=== PATIENT | male | born 1950 | race African-American/Black ===

== ENCOUNTER 2020-03-05 17:39 | Inpatient (IN) ==
[2020-03-05 18:02] LABS: Basophils # 0.1 10*3/uL (0.0-0.2); Basophils % 0.7 % (0.0-0.8); Eosinophils # 0.1 10*3/uL (0.0-0.87); Eosinophils % 1.2 % (0.00-10.9); Hematocrit 35.5 VOL% (42.0-52.0); Hemoglobin 11.5 GM/DL (14.0-18.0); Immature Granulocytes % 0.3 %; Immature Granulocytes Absolute 0.03 #; Lymphocytes # 1.5 10*3/uL (1.4-4.0); Lymphocytes % 16.9 % (21.2-54.2); Mean Corpuscular HGB Conc 32.4 GM/DL (32-36); Mean Platelet Volume 11.3 FL (9.6-12.0); Monocytes % 10.4 % (1.7-12.7); Neutrophils % 70.5 % (38.7-73.9); Platelet Count 174 T/CUMM (130-400); Red Blood Count 3.66 MC/CUMM (3.8-5.5); Red Cell Distribution Width 11.8 % (9.3-17.3); White Blood Count 9.1 T/CUMM (4-12)
[2020-03-05 18:51] LABS: Albumin 3.9 G/DL (3.4-5.0); Calcium 9.6 MG/DL (8.5-10.1); Osmolality,Calculated 284.4 MOS/KG (273-304); Total Protein 7.8 G/DL (6.4-8.3)
[2020-03-05] MEDS ORDERED: ASPIRIN CHEW 81 MG TABLET PO STA (20:35)
[2020-03-05] MEDS ORDERED: ONDANSETRON 4 MG/2 ML VIAL IV PRN (21:44)
[2020-03-05] MEDS ORDERED: MORPHINE 4 MG/1 ML VIAL IV PRN (21:44)
[2020-03-05] MEDS ORDERED: DEXTROSE 50% 25 GM/50 ML VIAL IV PRN (21:44)
[2020-03-05] MEDS ORDERED: GLUCAGON 1 MG VIAL IM PRN (21:44)
[2020-03-05] MEDS ORDERED: ACETAMINOPHEN 325 MG TABLET PO PRN (21:44)
[2020-03-05] MEDS ORDERED: DEXTROSE 50% 25 GM/50 ML SYRINGE IV PRN (21:53)
[2020-03-05] MEDS ORDERED: ENOXAPARIN 80 MG/0.8 ML SYRINGE SUBCUT SCH (22:00)
[2020-03-05 23:50] LABS: Bilirubin,Urine Negative (Negative); Blood, Urine Small mg/dL (Negative); Glucose,Urine (UA) >=500 mg/dL (Negative); Ketones,Urine Negative (Negative); Mucus,Urine Occasional /LPF (Occasional); Nitrite,Urine Negative (Negative); Protein,Urine 30 MG/DL; RBC,Urine 21 /HPF (0-4); Urine Appearance CLEAR (Clear); Urine Color Yellow (Yellow); Urine Specific Gravity 1.024 (1.001-1.035); WBC,Urine 1 /HPF (0-6)
[2020-03-06 05:54] LABS: Basophils # 0.1 10*3/uL (0.0-0.2); Basophils % 0.7 % (0.0-0.8); Eosinophils # 0.1 10*3/uL (0.0-0.87); Eosinophils % 1.9 % (0.00-10.9); Hematocrit 33.9 VOL% (42.0-52.0); Hemoglobin 11.2 GM/DL (14.0-18.0); Immature Granulocytes % 0.3 %; Immature Granulocytes Absolute 0.02 #; Lymphocytes % 26.8 % (21.2-54.2); Mean Corpuscular Volume 96.3 FL (87-102); Monocytes % 10.7 % (1.7-12.7); Neutrophils % 59.6 % (38.7-73.9); Platelet Count 159 T/CUMM (130-400); Red Blood Count 3.52 MC/CUMM (3.8-5.5); Red Cell Distribution Width 11.8 % (9.3-17.3); White Blood Count 7.5 T/CUMM (4-12)
[2020-03-06 06:02] LABS: Albumin 3.4 G/DL (3.4-5.0); Bilirubin,Total 1.2 MG/DL (0.2-1.0); Calcium 9.1 MG/DL (8.5-10.1); Osmolality,Calculated 280.3 MOS/KG (273-304); Total Protein 7.3 G/DL (6.4-8.3)
[2020-03-06 06:03] LABS: Risk Ratio 2.05
[2020-03-06] MEDS ORDERED: DIAZEPAM 5 MG TABLET PO ONE (07:46)
[2020-03-06] MEDS ORDERED: diphenhydrAMINE CAP 25 MG CAPSULE PO ONE (07:46)
[2020-03-06] MEDS ORDERED: POTASSIUM CHLORIDE 20 MEQ TABLET PO ONE (07:50)
[2020-03-06] MEDS ORDERED: NITROGLYCERIN SL 0.4 MG TABLET SL PRN (07:52)
[2020-03-06] MEDS: INSULIN REGULAR 100 UNIT/ML SUBCUT SCH ×4 (08:59→20:27)
[2020-03-06] MEDS: LOSARTAN 25 MG TABLET PO SCH (09:14)
[2020-03-06] MEDS: ATORVASTATIN 80 MG TABLET PO SCH (09:14)
[2020-03-06] MEDS: CLOPIDOGREL 75 MG TABLET PO SCH (09:15)
[2020-03-06] MEDS: SODIUM CHLORIDE 0.45% 1,000 ML IV SCH ×3 (09:15→18:22)
[2020-03-06] MEDS: carvediloL 3.125 MG TABLET PO SCH ×2 (09:15→20:28)
[2020-03-06] MEDS: PANTOPRAZOLE 40 MG TABLET PO SCH (09:15)
[2020-03-06] MEDS: ASPIRIN EC 325 MG TABLET PO SCH (09:15)
[2020-03-06] MEDS: OFLOXACIN 0.3% OPH SOLN 5 ML BOTTLE RIGHT EYE SCH ×3 (09:20→20:29)
[2020-03-06] MEDS ORDERED: HEPARIN/NACL 0.9% 2 UNITS/ML 1,000 ML IV ONE (11:07)
[2020-03-06] MEDS ORDERED: LIDOCAINE 1% 20 ML VIAL ONE (11:08)
[2020-03-06] MEDS ORDERED: MIDAZOLAM 2 MG/2 ML VIAL ONE (11:08)
[2020-03-06] MEDS ORDERED: fentaNYL 100 MCG/2 ML VIAL ONE (11:09)
[2020-03-06] MEDS ORDERED: HEPARIN/NACL 0.9% 2 UNITS/ML 500 ML IV ONE (11:14)
[2020-03-06] MEDS ORDERED: SODIUM CHLORIDE 0.9% 1,000 ML IV SCH (12:30)
[2020-03-06] MEDS ORDERED: ROSUVASTATIN 20 MG TABLET PO SCH (21:00)
[2020-03-07] MEDS: SODIUM CHLORIDE 0.45% 1,000 ML IV SCH ×2 (02:03→10:14)
[2020-03-07 04:23] LABS: Basophils % 0.5 % (0.0-0.8); Eosinophils # 0.2 10*3/uL (0.0-0.87); Eosinophils % 2.4 % (0.00-10.9); Hematocrit 34.3 VOL% (42.0-52.0); Immature Granulocytes % 0.2 %; Immature Granulocytes Absolute 0.02 #; Lymphocytes # 1.7 10*3/uL (1.4-4.0); Lymphocytes % 20.8 % (21.2-54.2); Mean Corpuscular HGB Conc 32.1 GM/DL (32-36); Mean Corpuscular Volume 97.2 FL (87-102); Mean Platelet Volume 11.1 FL (9.6-12.0); Monocytes % 10.3 % (1.7-12.7); Neutrophils % 65.8 % (38.7-73.9); Platelet Count 157 T/CUMM (130-400); Red Blood Count 3.53 MC/CUMM (3.8-5.5); Red Cell Distribution Width 11.7 % (9.3-17.3)
[2020-03-07 04:38] LABS: Calcium 8.1 MG/DL (8.5-10.1); Osmolality,Calculated 278.5 MOS/KG (273-304)
[2020-03-07 04:42] LABS: CKMB % 0.8 %
[2020-03-07 04:52] LABS: Troponin I 1.17 NG/ML (0.00-0.045)
[2020-03-07] MEDS: FLUTICASONE/SALMETEROL 100-50 DISKUS 14 DOSE INH SCH ×2 (05:25→09:35)
[2020-03-07] MEDS ORDERED: carvediloL 3.125 MG TABLET PO SCH (08:00)
[2020-03-07] MEDS: INSULIN REGULAR 100 UNIT/ML SUBCUT SCH ×2 (08:56→12:04)
[2020-03-07] MEDS ORDERED: ISOSORBIDE MONONITRATE 30 MG TABLET PO SCH (09:00)
[2020-03-07] MEDS: ATORVASTATIN 80 MG TABLET PO SCH (09:35)
[2020-03-07] MEDS: CLOPIDOGREL 75 MG TABLET PO SCH (09:35)
[2020-03-07] MEDS: OFLOXACIN 0.3% OPH SOLN 5 ML BOTTLE RIGHT EYE SCH ×2 (09:35→12:46)
[2020-03-07] MEDS: PANTOPRAZOLE 40 MG TABLET PO SCH (09:35)
[2020-03-07] MEDS: ASPIRIN EC 325 MG TABLET PO SCH (09:35)
[2020-03-07] MEDS: LOSARTAN 25 MG TABLET PO SCH (09:35)
[2020-03-07] MEDS ORDERED: carvediloL 6.25 MG TABLET PO SCH (09:39)
[2020-03-07] MEDS ORDERED: MAGNESIUM SULF RIDER 2 GM in PREMIX 1 EACH IV ONE (10:53)
[2020-03-07 12:23] VITALS: BP 126/74
== END 2020-03-07 14:30 | disposition home or self-care (01) | DRG 281 ==
LOC: N.ED 17:39 → N.EDINP 17:39 → N.TELEN 03-06 00:08
PROVIDERS: ADMIT Family Medicine; ATTEND Family Medicine
PROC: CLCCHCL (ICD-10-PCS; 2020-03-06 10:15)

== ENCOUNTER 2022-02-24 10:05 | Inpatient (IN) ==
[2022-02-24] MEDS ORDERED: PANTOPRAZOLE 40 MG VIAL IV STA (10:38)
[2022-02-24] MEDS ORDERED: ONDANSETRON 4 MG/2 ML VIAL IV STA ×2 (10:38→12:42)
[2022-02-24] MEDS ORDERED: SODIUM CHLORIDE 0.9% 1,000 ML IV STA (10:38)
[2022-02-24 11:17] LABS: Basophils % 0.3 % (0.0-0.8); Eosinophils % 0.2 % (0.00-10.9); Hematocrit 38.8 VOL% (42.0-52.0); Hemoglobin 12.8 GM/DL (14.0-18.0); Immature Granulocytes % 0.3 %; Immature Granulocytes Absolute 0.04 #; Lymphocytes # 0.8 10*3/uL (1.4-4.0); Lymphocytes % 6.6 % (21.2-54.2); Mean Corpuscular Volume 95.8 FL (87-102); Mean Platelet Volume 9.8 FL (9.6-12.0); Monocytes # 0.7 10*3/uL (0.11-0.8); Monocytes % 5.6 % (1.7-12.7); Platelet Count 185 T/CUMM (130-400); Red Blood Count 4.05 MC/CUMM (3.8-5.5); Red Cell Distribution Width 11.7 % (9.3-17.3); White Blood Count 12.1 T/CUMM (4-12)
[2022-02-24 11:26] LABS: Bilirubin,Urine Negative (Negative); Blood, Urine Large mg/dL (Negative); Glucose,Urine (UA) >1000 mg/dL (Negative); Ketones,Urine 15 mg/dL (Negative); Mucus,Urine Occasional /LPF (Occasional); Nitrite,Urine Negative (Negative); Protein,Urine Trace mg/dL (Negative); RBC,Urine 91 /HPF (0-4); Urine Appearance Clear (Clear); Urine Color Yellow (Yellow); Urine Specific Gravity 1.015 (1.001-1.035); Urine Urobilinogen 0.2 eU/dL (<2.0)
[2022-02-24 11:36] LABS: Albumin 3.9 G/DL (3.4-5.0); Bilirubin,Total 0.5 MG/DL (0.20-1.00); Calcium 9.5 MG/DL (8.5-10.1); Osmolality,Calculated 296.4 MOS/KG (273-304); Potassium 4.1 MMOL/L (3.5-5.1); Total Protein 8.3 G/DL (6.4-8.2)
[2022-02-24] MEDS ORDERED: HYDROmorphone 1 MG/1 ML SYRINGE IV STA (12:39)
[2022-02-24] MEDS ORDERED: propofoL 200 MG/20 ML VIAL IV ONE ×2 (13:40→14:50)
[2022-02-24] MEDS ORDERED: fentaNYL 100 MCG/2 ML VIAL ONE (13:40)
[2022-02-24] MEDS ORDERED: LIDOCAINE 2% 5 ML VIAL ONE (13:40)
[2022-02-24] MEDS ORDERED: cefTRIAXone 1,000 MG in SODIUM CHLORIDE 0.9% 100 ML IV ONE (13:41)
[2022-02-24] MEDS ORDERED: ETOMIDATE 40 MG/20 ML VIAL IV ONE (13:43)
[2022-02-24] MEDS ORDERED: PHENYLEPHRINE 1 MG/10 ML SYRINGE IV ONE (14:50)
[2022-02-24] MEDS ORDERED: SUCCINYLCHOLINE 200 MG/10 ML VIAL ONE (14:50)
[2022-02-24] MEDS ORDERED: SEVOFLURANE 1 UNIT/15 MINUTE INH ONE (14:50)
[2022-02-24] MEDS ORDERED: DEXTROSE 10% 250 ML BAG IV PRN (15:07)
[2022-02-24] MEDS ORDERED: GLUCAGON 1 MG VIAL IM PRN (15:07)
[2022-02-24] MEDS ORDERED: MORPHINE 2 MG/1 ML SYRINGE IV PRN (15:07)
[2022-02-24] MEDS ORDERED: hydrALAZINE 20 MG/1 ML VIAL IV PRN (15:07)
[2022-02-24] MEDS ORDERED: ONDANSETRON 4 MG/2 ML VIAL IV PRN ×2 (15:07→15:15)
[2022-02-24] MEDS ORDERED: diphenhydrAMINE 50 MG/1 ML VIAL IV PRN (15:15)
[2022-02-24] MEDS ORDERED: MEPERIDINE 25 MG/1 ML VIAL IV PRN (15:15)
[2022-02-24] MEDS ORDERED: HYDROmorphone 1 MG/1 ML SYRINGE IV PRN (15:15)
[2022-02-24] MEDS ORDERED: LACTATED RINGERS 1,000 ML IV SCH ×2 (15:30)
[2022-02-24] MEDS: carvediloL 6.25 MG TABLET PO SCH (16:20)
[2022-02-24] MEDS: INSULIN LISPRO 100 UNIT/ML SUBCUT SCH ×2 (16:46→20:58)
[2022-02-24] MEDS: INSULIN GLARGINE 100 UNIT/ML SUBCUT SCH (22:58)
[2022-02-25 05:09] LABS: Basophils % 0.3 % (0.0-0.8); Eosinophils # 0.1 10*3/uL (0.0-0.87); Eosinophils % 1.2 % (0.00-10.9); Hemoglobin 11.3 GM/DL (14.0-18.0); Immature Granulocytes % 0.3 %; Immature Granulocytes Absolute 0.03 #; Lymphocytes # 1.9 10*3/uL (1.4-4.0); Mean Corpuscular HGB Conc 33.2 GM/DL (32-36); Mean Corpuscular Volume 97.1 FL (87-102); Mean Platelet Volume 10.4 FL (9.6-12.0); Monocytes % 10.8 % (1.7-12.7); Neutrophils % 67.4 % (38.7-73.9); Platelet Count 195 T/CUMM (130-400); Red Cell Distribution Width 11.8 % (9.3-17.3); White Blood Count 9.4 T/CUMM (4-12)
[2022-02-25 05:25] LABS: Calcium 8.9 MG/DL (8.5-10.1); Osmolality,Calculated 290.8 MOS/KG (273-304); Potassium 3.5 MMOL/L (3.5-5.1)
[2022-02-25] MEDS: IRON (CARBONYL)/VIT C/B12/FA TABLET PO SCH ×2 (07:44→08:02)
[2022-02-25] MEDS: ATORVASTATIN 80 MG TABLET PO SCH ×2 (07:44→08:02)
[2022-02-25] MEDS: amLODIPine 10 MG TABLET PO SCH ×2 (07:45→08:02)
[2022-02-25] MEDS: CHOLECALCIFEROL 5,000 UNIT TABLET PO SCH ×2 (07:45→08:02)
[2022-02-25] MEDS: carvediloL 6.25 MG TABLET PO SCH ×2 (07:45→17:13)
[2022-02-25] MEDS: INSULIN LISPRO 100 UNIT/ML SUBCUT SCH ×4 (07:59→20:59)
[2022-02-25] MEDS ORDERED: SODIUM CHLORIDE 0.9% 1,000 ML IV SCH (10:30)
[2022-02-25] MEDS: MULTIVITAMIN (CENTRUM) TABLET PO SCH (10:52)
[2022-02-25] MEDS: ISOSORBIDE MONONITRATE 30 MG TABLET PO SCH (10:52)
[2022-02-25] MEDS: ASPIRIN EC 81 MG TABLET PO SCH (10:52)
[2022-02-25] MEDS: BUDESONIDE/FORMOTEROL 80-4.5 INHALER 6.9 GM INH SCH ×2 (10:53→22:00)
[2022-02-25] MEDS: cefTRIAXone 1,000 MG in SODIUM CHLORIDE 0.9% 100 ML IV SCH (13:16)
[2022-02-25] MEDS: INSULIN GLARGINE 100 UNIT/ML SUBCUT SCH (20:51)
[2022-02-26 05:03] LABS: Basophils % 0.4 % (0.0-0.8); Eosinophils # 0.2 10*3/uL (0.0-0.87); Eosinophils % 2.5 % (0.00-10.9); Hemoglobin 10.9 GM/DL (14.0-18.0); Immature Granulocytes % 0.4 %; Immature Granulocytes Absolute 0.03 #; Lymphocytes % 27.9 % (21.2-54.2); Mean Corpuscular Volume 97.1 FL (87-102); Mean Platelet Volume 9.8 FL (9.6-12.0); Monocytes # 0.7 10*3/uL (0.11-0.8); Monocytes % 10.1 % (1.7-12.7); Neutrophils % 58.7 % (38.7-73.9); Platelet Count 186 T/CUMM (130-400); Red Cell Distribution Width 11.8 % (9.3-17.3); White Blood Count 7.3 T/CUMM (4-12)
[2022-02-26 05:29] LABS: Calcium 8.8 MG/DL (8.5-10.1); Potassium 3.7 MMOL/L (3.5-5.1)
[2022-02-26] MEDS: INSULIN LISPRO 100 UNIT/ML SUBCUT SCH ×4 (07:25→20:29)
[2022-02-26] MEDS: CHOLECALCIFEROL 5,000 UNIT TABLET PO SCH (09:33)
[2022-02-26] MEDS: carvediloL 6.25 MG TABLET PO SCH ×2 (09:33→17:01)
[2022-02-26] MEDS: MULTIVITAMIN (CENTRUM) TABLET PO SCH (09:33)
[2022-02-26] MEDS: IRON (CARBONYL)/VIT C/B12/FA TABLET PO SCH (09:33)
[2022-02-26] MEDS: ISOSORBIDE MONONITRATE 30 MG TABLET PO SCH (09:33)
[2022-02-26] MEDS: ASPIRIN EC 81 MG TABLET PO SCH (09:34)
[2022-02-26] MEDS: amLODIPine 10 MG TABLET PO SCH (09:34)
[2022-02-26] MEDS: ATORVASTATIN 80 MG TABLET PO SCH (09:34)
[2022-02-26] MEDS: BUDESONIDE/FORMOTEROL 80-4.5 INHALER 6.9 GM INH SCH ×2 (09:34→20:30)
[2022-02-26 10:15] LABS: % Iron Saturation 26.3 % (18-50)
[2022-02-26 10:18] LABS: Folate 17.26 NG/ML (5.38-24.0)
[2022-02-26] MEDS: cefTRIAXone 1,000 MG in SODIUM CHLORIDE 0.9% 100 ML IV SCH (13:45)
[2022-02-26] MEDS: INSULIN GLARGINE 100 UNIT/ML SUBCUT SCH (20:28)
[2022-02-27 06:13] LABS: Basophils % 0.5 % (0.0-0.8); Eosinophils # 0.2 10*3/uL (0.0-0.87); Eosinophils % 3.4 % (0.00-10.9); Hematocrit 32.9 VOL% (42.0-52.0); Hemoglobin 10.9 GM/DL (14.0-18.0); Immature Granulocytes % 0.5 %; Immature Granulocytes Absolute 0.03 #; Lymphocytes # 1.7 10*3/uL (1.4-4.0); Lymphocytes % 26.1 % (21.2-54.2); Mean Corpuscular HGB Conc 33.1 GM/DL (32-36); Mean Corpuscular Volume 97.6 FL (87-102); Monocytes # 0.7 10*3/uL (0.11-0.8); Monocytes % 11.4 % (1.7-12.7); Neutrophils % 58.1 % (38.7-73.9); Platelet Count 203 T/CUMM (130-400); Red Blood Count 3.37 MC/CUMM (3.8-5.5); Red Cell Distribution Width 11.8 % (9.3-17.3); White Blood Count 6.5 T/CUMM (4-12)
[2022-02-27 06:44] LABS: Calcium 9.1 MG/DL (8.5-10.1); Osmolality,Calculated 287.7 MOS/KG (273-304); Potassium 3.7 MMOL/L (3.5-5.1)
[2022-02-27 06:48] LABS: Calcium 8.9 MG/DL (8.5-10.1); Potassium 3.5 MMOL/L (3.5-5.1)
[2022-02-27] MEDS: INSULIN LISPRO 100 UNIT/ML SUBCUT SCH (08:10)
[2022-02-27] MEDS: IRON (CARBONYL)/VIT C/B12/FA TABLET PO SCH (10:00)
[2022-02-27] MEDS: ISOSORBIDE MONONITRATE 30 MG TABLET PO SCH (10:00)
[2022-02-27] MEDS: CHOLECALCIFEROL 5,000 UNIT TABLET PO SCH (10:00)
[2022-02-27] MEDS: ASPIRIN EC 81 MG TABLET PO SCH (10:00)
[2022-02-27] MEDS: carvediloL 6.25 MG TABLET PO SCH ×2 (10:00→17:04)
[2022-02-27] MEDS: BUDESONIDE/FORMOTEROL 80-4.5 INHALER 6.9 GM INH SCH ×2 (10:00→22:34)
[2022-02-27] MEDS: MULTIVITAMIN (CENTRUM) TABLET PO SCH (10:00)
[2022-02-27] MEDS: ATORVASTATIN 80 MG TABLET PO SCH (10:00)
[2022-02-27] MEDS: amLODIPine 10 MG TABLET PO SCH (10:00)
[2022-02-27] MEDS: SODIUM CHLORIDE 0.9% 1,000 ML IV SCH (13:07)
[2022-02-27] MEDS: cefTRIAXone 1,000 MG in SODIUM CHLORIDE 0.9% 100 ML IV SCH (13:07)
[2022-02-27] MEDS: INSULIN GLARGINE 100 UNIT/ML SUBCUT SCH (21:53)
[2022-02-28 04:51] LABS: Basophils % 0.7 % (0.0-0.8); Eosinophils # 0.2 10*3/uL (0.0-0.87); Eosinophils % 3.6 % (0.00-10.9); Hematocrit 33.2 VOL% (42.0-52.0); Hemoglobin 10.8 GM/DL (14.0-18.0); Immature Granulocytes % 0.3 %; Immature Granulocytes Absolute 0.02 #; Lymphocytes # 1.5 10*3/uL (1.4-4.0); Mean Corpuscular HGB Conc 32.5 GM/DL (32-36); Mean Corpuscular Volume 97.1 FL (87-102); Mean Platelet Volume 9.7 FL (9.6-12.0); Monocytes # 0.6 10*3/uL (0.11-0.8); Monocytes % 10.6 % (1.7-12.7); Neutrophils % 58.8 % (38.7-73.9); Platelet Count 208 T/CUMM (130-400); Red Blood Count 3.42 MC/CUMM (3.8-5.5); Red Cell Distribution Width 11.7 % (9.3-17.3); White Blood Count 5.8 T/CUMM (4-12)
[2022-02-28 05:24] LABS: Calcium 9.1 MG/DL (8.5-10.1); Osmolality,Calculated 295.8 MOS/KG (273-304); Potassium 4.1 MMOL/L (3.5-5.1)
[2022-02-28 05:28] LABS: Calcium 9.1 MG/DL (8.5-10.1); Osmolality,Calculated 292.1 MOS/KG (273-304); Potassium 3.9 MMOL/L (3.5-5.1)
[2022-02-28] MEDS: ISOSORBIDE MONONITRATE 30 MG TABLET PO SCH (08:18)
[2022-02-28] MEDS: IRON (CARBONYL)/VIT C/B12/FA TABLET PO SCH (08:18)
[2022-02-28] MEDS: amLODIPine 10 MG TABLET PO SCH (08:19)
[2022-02-28] MEDS: CHOLECALCIFEROL 5,000 UNIT TABLET PO SCH (08:19)
[2022-02-28] MEDS: ASPIRIN EC 81 MG TABLET PO SCH (08:19)
[2022-02-28] MEDS: carvediloL 6.25 MG TABLET PO SCH ×2 (08:19→17:30)
[2022-02-28] MEDS: BUDESONIDE/FORMOTEROL 80-4.5 INHALER 6.9 GM INH SCH ×2 (08:19→20:46)
[2022-02-28] MEDS: ATORVASTATIN 80 MG TABLET PO SCH (08:19)
[2022-02-28] MEDS: MULTIVITAMIN (CENTRUM) TABLET PO SCH (08:19)
[2022-02-28] MEDS: SODIUM CHLORIDE 0.9% 1,000 ML IV SCH (08:22)
[2022-02-28] MEDS ORDERED: propofoL 200 MG/20 ML VIAL IV ONE (09:51)
[2022-02-28] MEDS ORDERED: fentaNYL 100 MCG/2 ML VIAL ONE (09:51)
[2022-02-28] MEDS ORDERED: LIDOCAINE 2% 5 ML VIAL ONE (09:51)
[2022-02-28] MEDS ORDERED: ONDANSETRON 4 MG/2 ML VIAL ONE (09:51)
[2022-02-28] MEDS ORDERED: ETOMIDATE 40 MG/20 ML VIAL IV ONE (09:51)
[2022-02-28] MEDS ORDERED: SEVOFLURANE 1 UNIT/15 MINUTE INH ONE (09:51)
[2022-02-28] MEDS ORDERED: GLYCOPYRROLATE 0.4 MG/2 ML VIAL ONE (12:19)
[2022-02-28] MEDS ORDERED: ePHEDrine 50 MG/ML VIAL ONE (12:22)
[2022-02-28] MEDS ORDERED: ONDANSETRON 4 MG/2 ML VIAL IV PRN (12:32)
[2022-02-28] MEDS ORDERED: MEPERIDINE 25 MG/1 ML VIAL IV PRN (12:32)
[2022-02-28] MEDS ORDERED: HYDROmorphone 1 MG/1 ML SYRINGE IV PRN (12:32)
[2022-02-28] MEDS ORDERED: diphenhydrAMINE 50 MG/1 ML VIAL IV PRN (12:32)
[2022-02-28] MEDS ORDERED: PROMETHAZINE INJ 25 MG in SODIUM CHLORIDE 0.9% 50 ML IV PRN (12:32)
[2022-02-28] MEDS: cefTRIAXone 1,000 MG in SODIUM CHLORIDE 0.9% 100 ML IV SCH (13:23)
[2022-02-28] MEDS ORDERED: GLUCAGON 1 MG VIAL IM PRN (15:53)
[2022-02-28] MEDS ORDERED: DEXTROSE 50% 25 GM/50 ML VIAL IV PRN (15:53)
[2022-02-28 20:20] LABS: Bilirubin,Urine Negative (Negative); Blood, Urine Moderate mg/dL (Negative); Glucose,Urine (UA) >=500 mg/dL (Negative); Ketones,Urine Negative (Negative); Nitrite,Urine Negative (Negative); Protein,Urine 100 mg/dL (Negative); RBC,Urine 2811 /HPF (0-4); Urine Appearance Slightly Hazy (Clear); Urine Color Red (Yellow); Urine Specific Gravity 1.006 (1.001-1.035); Urine Urobilinogen < 2.0 eU/dL (<2.0)
[2022-02-28] MEDS: INSULIN GLARGINE 100 UNIT/ML SUBCUT SCH (20:42)
[2022-03-01] MEDS: SODIUM CHLORIDE 0.9% 1,000 ML IV SCH (04:39)
[2022-03-01 05:46] LABS: Basophils # 0.1 10*3/uL (0.0-0.2); Basophils % 0.7 % (0.0-0.8); Eosinophils # 0.2 10*3/uL (0.0-0.87); Eosinophils % 2.6 % (0.00-10.9); Hematocrit 35.3 VOL% (42.0-52.0); Hemoglobin 11.5 GM/DL (14.0-18.0); Immature Granulocytes % 0.3 %; Immature Granulocytes Absolute 0.03 #; Lymphocytes # 1.7 10*3/uL (1.4-4.0); Lymphocytes % 18.8 % (21.2-54.2); Mean Corpuscular HGB Conc 32.6 GM/DL (32-36); Mean Corpuscular Volume 97.5 FL (87-102); Mean Platelet Volume 10.2 FL (9.6-12.0); Monocytes # 0.9 10*3/uL (0.11-0.8); Monocytes % 9.6 % (1.7-12.7); Platelet Count 253 T/CUMM (130-400); Red Blood Count 3.62 MC/CUMM (3.8-5.5); Red Cell Distribution Width 11.8 % (9.3-17.3)
[2022-03-01 06:07] LABS: Calcium 9.6 MG/DL (8.5-10.1); Osmolality,Calculated 286.4 MOS/KG (273-304)
[2022-03-01] MEDS: POLYETHYLENE GLYCOL POWDER 17 GM PACK PO SCH (09:29)
[2022-03-01] MEDS: carvediloL 6.25 MG TABLET PO SCH ×2 (09:29→17:15)
[2022-03-01] MEDS: ISOSORBIDE MONONITRATE 30 MG TABLET PO SCH (09:29)
[2022-03-01] MEDS: ASPIRIN EC 81 MG TABLET PO SCH (09:29)
[2022-03-01] MEDS: CHOLECALCIFEROL 5,000 UNIT TABLET PO SCH (09:29)
[2022-03-01] MEDS: ATORVASTATIN 80 MG TABLET PO SCH (09:29)
[2022-03-01] MEDS: MULTIVITAMIN (CENTRUM) TABLET PO SCH (09:29)
[2022-03-01] MEDS: amLODIPine 10 MG TABLET PO SCH (09:29)
[2022-03-01] MEDS: IRON (CARBONYL)/VIT C/B12/FA TABLET PO SCH (09:34)
[2022-03-01] MEDS: BUDESONIDE/FORMOTEROL 80-4.5 INHALER 6.9 GM INH SCH ×2 (09:35→20:23)
[2022-03-01] MEDS: cefTRIAXone 1,000 MG in SODIUM CHLORIDE 0.9% 100 ML IV SCH (14:19)
[2022-03-01] MEDS: TAMSULOSIN 0.4 MG CAPSULE PO SCH ×2 (14:19→20:22)
[2022-03-01] MEDS: INSULIN GLARGINE 100 UNIT/ML SUBCUT SCH (20:23)
[2022-03-02] MEDS: SODIUM CHLORIDE 0.9% 1,000 ML IV SCH (01:19)
[2022-03-02 04:52] LABS: Basophils # 0.1 10*3/uL (0.0-0.2); Basophils % 0.8 % (0.0-0.8); Eosinophils # 0.2 10*3/uL (0.0-0.87); Eosinophils % 2.9 % (0.00-10.9); Immature Granulocytes % 0.3 %; Immature Granulocytes Absolute 0.02 #; Lymphocytes # 1.6 10*3/uL (1.4-4.0); Lymphocytes % 25.8 % (21.2-54.2); Mean Corpuscular HGB Conc 33.3 GM/DL (32-36); Mean Corpuscular Volume 96.8 FL (87-102); Mean Platelet Volume 10.2 FL (9.6-12.0); Monocytes # 0.9 10*3/uL (0.11-0.8); Monocytes % 14.1 % (1.7-12.7); Neutrophils % 56.1 % (38.7-73.9); Platelet Count 208 T/CUMM (130-400); Red Cell Distribution Width 11.8 % (9.3-17.3); White Blood Count 6.2 T/CUMM (4-12)
[2022-03-02 05:02] LABS: Calcium 8.8 MG/DL (8.5-10.1); Osmolality,Calculated 294.1 MOS/KG (273-304)
[2022-03-02] MEDS: BUDESONIDE/FORMOTEROL 80-4.5 INHALER 6.9 GM INH SCH (09:25)
[2022-03-02] MEDS: POLYETHYLENE GLYCOL POWDER 17 GM PACK PO SCH (09:25)
[2022-03-02] MEDS: CHOLECALCIFEROL 5,000 UNIT TABLET PO SCH (09:26)
[2022-03-02] MEDS: ASPIRIN EC 81 MG TABLET PO SCH (09:26)
[2022-03-02] MEDS: carvediloL 6.25 MG TABLET PO SCH (09:26)
[2022-03-02] MEDS: ATORVASTATIN 80 MG TABLET PO SCH (09:26)
[2022-03-02] MEDS: ISOSORBIDE MONONITRATE 30 MG TABLET PO SCH (09:26)
[2022-03-02] MEDS: amLODIPine 10 MG TABLET PO SCH (09:26)
[2022-03-02] MEDS: MULTIVITAMIN (CENTRUM) TABLET PO SCH (09:26)
[2022-03-02] MEDS: IRON (CARBONYL)/VIT C/B12/FA TABLET PO SCH (09:36)
[2022-03-02 12:07] VITALS: BP 119/67
[2022-03-08 09:31] LABS: Stone Analysis Interpretation SEE COMMENTS; Stone Source Kidney
== END 2022-03-02 14:20 | disposition home or self-care (01) | DRG 660 ==
LOC: N.ED 10:05 → N.3E 14:26 → SUATTDRO 15:07
PROVIDERS: ADMIT Internal Medicine; ATTEND Internal Medicine